=== PATIENT | male | born 1950 | race Caucasian/White ===

== ENCOUNTER 2021-07-31 15:47 | Inpatient (IN) | payer OTHER ==
[~2021-07-31] VITALS: Ht 170.2 cm; Wt 83.7 kg
[2021-07-31] MEDS ORDERED: SODIUM CHLORIDE 0.9% 1,000 ML IV ONE (16:15)
[2021-07-31] MEDS ORDERED: AMIODARONE HCL 150 MG in D5W 5% 100 ML IV ONE (16:15)
[2021-07-31 16:23] LABS: Basophils # (auto) 0.1 10 ^3/uL (0-0.2); Basophils % (auto) 0.4 % (0.0-2.0); Eosinophils # (auto) 0 10 ^3/uL (0-0.8); Hemoglobin 14.9 g/dL (13.5-17.5); Lymphocytes # (auto) 0.4 10 ^3/uL (0.4-5.4); Lymphocytes % (auto) 2.3 % (10.0-50.0); Mean Corpuscular Hemoglobin 30.9 pg (28.0-32.0); Mean Corpuscular Hgb Conc. 31.7 g/dL (32.0-36.0); Mean Corpuscular Volume 97.3 fL (80.0-100.0); Monocytes # (auto) 0.8 10 ^3/uL (0-1.3); Monocytes % (auto) 4.6 % (0.0-12.0); Neutrophils # (auto) 15.3 10 ^3/uL (1.6-8.6); Neutrophils % (auto) 92.7 % (37.0-80.0); Nucleated Red Blood Cells % 0.3 %; Red Blood Cells 4.83 10^6/uL (4.5-5.90); Red Cell Distribution Width 14.4 % (11.8-14.3); White Blood Cell 16.5 10^3/uL (4.4-10.8)
[2021-07-31] MEDS ORDERED: AMIODARONE 450mg/250ml AE 250 ML IV SCH ×2 (16:30→22:30)
[2021-07-31 16:42] LABS: Albumin 2.9 g/dL (3.4-5.0); BUN/Creatinine Ratio 21.7; Calcium 8.4 mg/dL (8.5-10.1); Magnesium 3.1 mg/dL (1.6-2.6)
[2021-07-31] MEDS ORDERED: VANCOMYCIN PER PHARMACY 0 MG IV SCH (16:45)
[2021-07-31] MEDS ORDERED: PIPERACILLIN-TAZOB 3.375GM 100 ML IV ONE (16:45)
[2021-07-31 16:58] LABS: Bilirubin, Total 4.2 mg/dL (0.2-1.0); Total Protein 6.4 g/dL (6.4-8.2)
[2021-07-31] MEDS ORDERED: FUROSEMIDE 40 MG/4 ML VIAL IV ONE ×2 (17:00→20:45)
[2021-07-31 17:14] LABS: Potassium 6.1 mmol/L (3.5-5.1)
[2021-07-31] MEDS ORDERED: DEXTROSE 50% SYRINGE 50 ML IV ONE (17:19)
[2021-07-31] MEDS ORDERED: DOBUTamine 1000MCG/ML 250 ML IV SCH (17:30)
[2021-07-31] MEDS ORDERED: DEXTROSE (50%) 50ML SYRG IV ONE ×2 (17:30→20:45)
[2021-07-31] MEDS ORDERED: DIGOXIN (250MCG/ML) 2 ML AMPULE IV ONE (17:30)
[2021-07-31 17:42] LABS: Lactic Acid w/Reflex 11.4 mmol/L (0.4-2.0)
[2021-07-31 17:43] VITALS: BP 102/79
[2021-07-31 18:34] LABS: Cholesterol 80 mg/dL (< 200)
[2021-07-31 18:37] LABS: HDL Cholesterol 16 mg/dL (40-59); LDL Cholesterol 63 mg/dL (< 100); Triglycerides 96 mg/dL (< 150)
[2021-07-31 18:54] LABS: INR 2.16 (0.9-1.15); Partial Thromboplastin Time 31.6 sec (23.6-33.0)
[2021-07-31 19:16] LABS: Urine Amorphous Crystal FEW /hpf (None Seen); Urine Bacteria NONE SEEN /hpf (None Seen); Urine Blood 2+ /uL (Negative); Urine Hyaline Cast MANY /lpf (0 - 2); Urine Mucus FEW (None Seen); Urine Specific Gravity 1.013 (1.001-1.035); Urine WBC 4 /hpf (0 - 3)
[2021-07-31] MEDS ORDERED: VANCOMYCIN 1GM/250ML 250 ML IV ONE (20:00)
[2021-07-31] MEDS ORDERED: DIGOXIN (250MCG/ML) 2 ML AMPULE IV SCH (20:00)
[2021-07-31 20:10] VITALS: BP 109/81
[2021-07-31] MEDS ORDERED: methylPREDNISolone SOD SUCC 125 MG/2 ML VL IV ONE (20:15)
[2021-07-31] MEDS ORDERED: METOPROLOL TARTRATE 1MG/1ML-5ML VIAL IV PRN (20:15)
[2021-07-31] MEDS ORDERED: DexAMETHasone SOD PHOS 10MG/1ML VIAL INJ IV ONE (20:30)
[2021-07-31] MEDS ORDERED: MORPHINE SULFATE INJECTION 2 MG/ML SYRG IV PRN ×2 (20:30)
[2021-07-31] MEDS ORDERED: NITROGLYCERIN 0.4 MG SL TAB SL PRN (20:30)
[2021-07-31] MEDS ORDERED: InsuLIN REG 1unit/0.01ml Soln (100units/ml) IV ONE (20:45)
[2021-07-31] MEDS ORDERED: CALCIUM CHL 100MG/ML 1,000 MG in D5W 5% 100 ML IV ONE (20:45)
[2021-07-31] MEDS ORDERED: ALBUTEROL SULF 2.5 MG/0.5ML(0.5%) NEB SOLN NEB ONE (20:45)
[2021-07-31] MEDS ORDERED: METOPROLOL SUCCINATE XL 50 MG TAB PO ONE (20:45)
[2021-07-31] MEDS ORDERED: SODIUM BICARBONATE 8.4% INJ 50ML SYRINGE IV ONE (20:45)
[2021-07-31] MEDS ORDERED: SODIUM ZIRCONIUM CYCL 10 GM PAK PO ONE (21:00)
[2021-07-31] MEDS ORDERED: D5W/SOD CHLO 0.9% 1,000 ML IV ONE (21:15)
[2021-07-31] MEDS ORDERED: ALBUMIN 25% 100 ML IV ONE (21:30)
[2021-07-31] MEDS ORDERED: ENOXAPARIN SOD 80 MG/0.8ML SYRINGE SC ONE (21:30)
[2021-07-31 22:00] VITALS: BP 108/78
[2021-07-31] MEDS ORDERED: CARVEDILOL 3.125 MG TAB PO SCH (22:00)
[2021-08-01] MEDS ORDERED: METOPROLOL SUCCINATE XL 50 MG TAB PO ONE (00:15)
[2021-08-01] MEDS ORDERED: DOCUSATE SOD 100 MG CAP PO PRN (00:15)
[2021-08-01] MEDS ORDERED: D5W/SOD CHLO 0.9% 1,000 ML IV SCH (00:15)
[2021-08-01] MEDS ORDERED: ALBUTEROL SULF HFA 90MCG INH 200DOSE IN PRN (00:15)
[2021-08-01] MEDS ORDERED: REMDESIVIR PER PHARMACY 0 ML IV SCH (00:15)
[2021-08-01] MEDS ORDERED: LORazepam 0.5 MG TAB PO PRN (00:15)
[2021-08-01] MEDS ORDERED: NITROGLYCERIN 0.4 MG SL TAB SL PRN (00:15)
[2021-08-01] MEDS ORDERED: ATORVASTATIN 20 MG TAB PO ONE (00:15)
[2021-08-01] MEDS ORDERED: MORPHINE SULFATE INJECTION 2 MG/ML SYRG IV PRN ×2 (00:15)
[2021-08-01] MEDS ORDERED: ASPirin 81 mg TAB PO ONE (00:15)
[2021-08-01] MEDS ORDERED: HYDROcodone-ACET 5/325MG TAB PO PRN (00:15)
[2021-08-01] MEDS ORDERED: ALUM & MAG HYDROX-SIMETH LIQ(MAALOX) 30 ML PO PRN (00:15)
[2021-08-01] MEDS ORDERED: ALBUMIN 25% 100 ML IV SCH (01:00)
[2021-08-01 01:10] LABS: Basophils # (auto) 0.2 10 ^3/uL (0-0.2); Basophils % (auto) 0.9 % (0.0-2.0); Eosinophils # (auto) 0 10 ^3/uL (0-0.8); Hematocrit 40.9 % (41.0-53.0); Hemoglobin 13.4 g/dL (13.5-17.5); Lymphocytes # (auto) 0.3 10 ^3/uL (0.4-5.4); Lymphocytes % (auto) 1.2 % (10.0-50.0); Mean Corpuscular Hemoglobin 31.2 pg (28.0-32.0); Mean Corpuscular Hgb Conc. 32.6 g/dL (32.0-36.0); Mean Corpuscular Volume 95.6 fL (80.0-100.0); Monocytes # (auto) 1.4 10 ^3/uL (0-1.3); Monocytes % (auto) 6.6 % (0.0-12.0); Neutrophils # (auto) 19.3 10 ^3/uL (1.6-8.6); Neutrophils % (auto) 91.3 % (37.0-80.0); Nucleated Red Blood Cells % 0.3 %; Red Blood Cells 4.28 10^6/uL (4.5-5.90); Red Cell Distribution Width 14.4 % (11.8-14.3); White Blood Cell 21.2 10^3/uL (4.4-10.8)
[2021-08-01 01:35] LABS: Albumin 3.1 g/dL (3.4-5.0); Magnesium 2.7 mg/dL (1.6-2.6); Potassium 5.2 mmol/L (3.5-5.1)
[2021-08-01] MEDS: ALBUMIN 25% 100 ML IV SCH ×3 (01:36→16:15)
[2021-08-01 01:47] LABS: Thyroid Stimulating Hormone 1.19 uIU/mL (0.358-3.74)
[2021-08-01 01:51] LABS: BUN/Creatinine Ratio 25.7; Bilirubin, Total 3.8 mg/dL (0.2-1.0); CRP High Sensitivity 9.95 mg/dL (< 0.3); Phosphorus 6.2 mg/dL (2.5-4.90); Total Protein 5.8 g/dL (6.4-8.2)
[2021-08-01 02:27] LABS: Alcohol, Urine 4.2 mg/dL (0-10); Cannabinoid Screen, Urine POSITIVE (NEGATIVE)
[2021-08-01 02:28] LABS: Amphetamine Screen, Urine POSITIVE (NEGATIVE); Barbiturate Scree,Urine NEGATIVE (NEGATIVE); Benzodiazephine Screen, Urine NEGATIVE (NEGATIVE); Cocaine Screen, Urine NEGATIVE (NEGATIVE); Opiate Scree,Urine NEGATIVE (NEGATIVE); Phencyclidine Screen, Urine NEGATIVE (NEGATIVE)
[2021-08-01 04:52] LABS: Basophils # (auto) 0 10 ^3/uL (0-0.2); Basophils % (auto) 0.1 % (0.0-2.0); Eosinophils # (auto) 0 10 ^3/uL (0-0.8); Hematocrit 39.2 % (41.0-53.0); Hemoglobin 12.7 g/dL (13.5-17.5); Lymphocytes # (auto) 0.3 10 ^3/uL (0.4-5.4); Lymphocytes % (auto) 1.9 % (10.0-50.0); Mean Corpuscular Hgb Conc. 32.4 g/dL (32.0-36.0); Mean Corpuscular Volume 95.7 fL (80.0-100.0); Monocytes % (auto) 5.6 % (0.0-12.0); Neutrophils # (auto) 16.9 10 ^3/uL (1.6-8.6); Neutrophils % (auto) 92.4 % (37.0-80.0); Nucleated Red Blood Cells % 0.5 %; Red Blood Cells 4.09 10^6/uL (4.5-5.90); White Blood Cell 18.3 10^3/uL (4.4-10.8)
[2021-08-01] MEDS ORDERED: FUROSEMIDE 20 MG/2 ML VIAL IV SCH ×2 (06:00)
[2021-08-01] MEDS: SODIUM CHLOR 0.9% PF (SALINE LOCK) 10ML VIAL/SYR IV SCH ×3 (06:40→21:47)
[2021-08-01] MEDS: SODIUM ZIRCONIUM CYCL 10 GM PAK PO SCH ×3 (06:40→21:48)
[2021-08-01] MEDS ORDERED: OPTISON 3ml Vial for INJ IV ONE ×2 (09:39→10:15)
[2021-08-01] MEDS ORDERED: DexAMETHasone SOD PHOS 10MG/1ML VIAL INJ IV SCH (10:00)
[2021-08-01] MEDS ORDERED: FLORASTOR (S. BOULARDII) 250 MG CAP PO SCH ×2 (10:00)
[2021-08-01] MEDS ORDERED: BUDESONIDE (INHALATION) 180 MCG IH IN SCH (10:00)
[2021-08-01] MEDS: DOXYCYCLINE 100MG/250ML 250 ML IV SCH ×2 (10:00→21:47)
[2021-08-01] MEDS ORDERED: ZINC SULFATE 220mg CAP or TAB PO SCH (10:00)
[2021-08-01] MEDS ORDERED: IVERMECTIN 3 MG TAB PO SCH (10:00)
[2021-08-01] MEDS: ASPirin 81 mg TAB PO SCH (10:26)
[2021-08-01] MEDS ORDERED: DIGOXIN (250MCG/ML) 2 ML AMPULE IV ONE (11:30)
[2021-08-01] MEDS ORDERED: DIGOXIN (250MCG/ML) 2 ML AMPULE ONE (12:37)
[2021-08-01] MEDS ORDERED: SODIUM BICARBONATE 50ML VIAL 50 ML in SOD CHL 0.45% 1,000 ML IV SCH (15:45)
[2021-08-01] MEDS ORDERED: BUMETANIDE 2.5mg/10ml (0.25 mg/ml) INJ IV ONE (15:50)
[2021-08-01] MEDS ORDERED: AMIODARONE HCL 200 MG TAB PO ONE (16:30)
[2021-08-01] MEDS ORDERED: WARFARIN SODIUM 2.5 MG TAB PO ONE (17:00)
[2021-08-01 20:05] LABS: INR 2.48 (0.9-1.15)
[2021-08-01] MEDS: AMIODARONE HCL 200 MG TAB PO SCH (21:47)
[2021-08-01] MEDS ORDERED: METOPROLOL SUCCINATE XL 50 MG TAB PO SCH (22:00)
[2021-08-01] MEDS: CARVEDILOL 3.125 MG TAB PO SCH (22:00)
[2021-08-01] MEDS ORDERED: ATORVASTATIN 20 MG TAB PO SCH (22:00)
[2021-08-01] MEDS ORDERED: ENOXAPARIN SOD 80 MG/0.8ML SYRINGE SC SCH (22:00)
[2021-08-01 23:27] VITALS: BP 107/58
[2021-08-02 05:00] VITALS: BP 109/69
[2021-08-02 06:03] LABS: Basophils # (auto) 0 10 ^3/uL (0-0.2); Basophils % (auto) 0.1 % (0.0-2.0); Eosinophils # (auto) 0 10 ^3/uL (0-0.8); Hematocrit 40.5 % (41.0-53.0); Hemoglobin 13.1 g/dL (13.5-17.5); Lymphocytes # (auto) 0.3 10 ^3/uL (0.4-5.4); Lymphocytes % (auto) 2.3 % (10.0-50.0); Mean Corpuscular Hemoglobin 31.6 pg (28.0-32.0); Mean Corpuscular Hgb Conc. 32.4 g/dL (32.0-36.0); Mean Corpuscular Volume 97.3 fL (80.0-100.0); Monocytes # (auto) 0.6 10 ^3/uL (0-1.3); Monocytes % (auto) 4.2 % (0.0-12.0); Neutrophils # (auto) 13.7 10 ^3/uL (1.6-8.6); Neutrophils % (auto) 93.4 % (37.0-80.0); Nucleated Red Blood Cells % 0.8 %; Red Blood Cells 4.16 10^6/uL (4.5-5.90); Red Cell Distribution Width 14.1 % (11.8-14.3); White Blood Cell 14.7 10^3/uL (4.4-10.8)
[2021-08-02] MEDS: SODIUM CHLOR 0.9% PF (SALINE LOCK) 10ML VIAL/SYR IV SCH ×3 (06:06→23:23)
[2021-08-02] MEDS: SODIUM ZIRCONIUM CYCL 10 GM PAK PO SCH ×3 (06:06→23:00)
[2021-08-02] MEDS: BUMETANIDE 2.5mg/10ml (0.25 mg/ml) INJ IV SCH ×2 (06:06→17:43)
[2021-08-02] MEDS: ONDANSETRON HCL 4 MG/2 ML VIAL IV PRN ×2 (06:07→18:12)
[2021-08-02 06:18] LABS: Chloride 102 mmol/L (98-107); INR 2.5 (0.9-1.15); Potassium 3.7 mmol/L (3.5-5.1); Sodium 133 mmol/L (136-145)
[2021-08-02 06:24] LABS: Albumin 2.5 g/dL (3.4-5.0); Alkaline Phosphatase 127 U/L (45-117); Anion Gap 11 (5-15); BUN/Creatinine Ratio 35.4; Bilirubin, Total 2.9 mg/dL (0.2-1.0); Calcium 6.9 mg/dL (8.5-10.1); Carbon Dioxide 20 mmol/L (21-32); GFR African American 37 mL/min; GFR Non-African American 30 mL/min; Glucose 101 mg/dL (74-106); Total Protein 5.1 g/dL (6.4-8.2)
[2021-08-02 07:04] LABS: Alanine Aminotransferase > 1000 U/L (16-61); Aspartate Aminotransferase > 1000 U/L (15-37)
[2021-08-02 07:05] LABS: Blood Urea Nitrogen 81 mg/dL (7-18)
[2021-08-02 09:09] VITALS: BP 126/80
[2021-08-02] MEDS: ASPirin 81 mg TAB PO SCH (09:31)
[2021-08-02] MEDS: DOXYCYCLINE 100MG/250ML 250 ML IV SCH ×2 (09:31→22:59)
[2021-08-02] MEDS: CARVEDILOL 3.125 MG TAB PO SCH ×2 (09:33→23:00)
[2021-08-02] MEDS: AMIODARONE HCL 200 MG TAB PO SCH ×2 (09:38→22:59)
[2021-08-02] MEDS: SODIUM BICARBONATE 50ML VIAL 75 ML in SOD CHL 0.45% 1,000 ML IV SCH ×2 (11:12→23:00)
[2021-08-02 13:00] VITALS: BP 110/63
[2021-08-02 16:49] VITALS: BP 111/47
[2021-08-02] MEDS ORDERED: WARFARIN SODIUM 2.5 MG TAB PO ONE (18:00)
[2021-08-02] MEDS ORDERED: Ensure HIGH Protein Chocolate 8oz Bottle PO SCH (18:00)
[2021-08-02 22:00] VITALS: BP 101/50
[2021-08-03 05:00] VITALS: BP 107/51
[2021-08-03] MEDS: BUMETANIDE 2.5mg/10ml (0.25 mg/ml) INJ IV SCH ×2 (05:50→17:40)
[2021-08-03] MEDS: ONDANSETRON HCL 4 MG/2 ML VIAL IV PRN ×2 (06:04→15:10)
[2021-08-03 06:22] LABS: Basophils # (auto) 0.1 10 ^3/uL (0-0.2); Basophils % (auto) 0.5 % (0.0-2.0); Eosinophils # (auto) 0 10 ^3/uL (0-0.8); Hematocrit 39.4 % (41.0-53.0); Hemoglobin 13.1 g/dL (13.5-17.5); Lymphocytes # (auto) 0.4 10 ^3/uL (0.4-5.4); Lymphocytes % (auto) 2.9 % (10.0-50.0); Mean Corpuscular Hemoglobin 31.2 pg (28.0-32.0); Mean Corpuscular Hgb Conc. 33.1 g/dL (32.0-36.0); Mean Corpuscular Volume 94.3 fL (80.0-100.0); Monocytes # (auto) 0.8 10 ^3/uL (0-1.3); Monocytes % (auto) 5.4 % (0.0-12.0); Neutrophils # (auto) 14.2 10 ^3/uL (1.6-8.6); Neutrophils % (auto) 91.2 % (37.0-80.0); Nucleated Red Blood Cells % 0.6 %; Red Blood Cells 4.18 10^6/uL (4.5-5.90); White Blood Cell 15.6 10^3/uL (4.4-10.8)
[2021-08-03 06:43] LABS: INR 1.98 (0.9-1.15)
[2021-08-03] MEDS: SODIUM CHLOR 0.9% PF (SALINE LOCK) 10ML VIAL/SYR IV SCH ×2 (06:55→13:58)
[2021-08-03 06:59] LABS: Potassium 3.7 mmol/L (3.5-5.1)
[2021-08-03 07:24] LABS: Albumin 2.3 g/dL (3.4-5.0); BUN/Creatinine Ratio 38.9; Bilirubin, Total 2.1 mg/dL (0.2-1.0); Calcium 7.2 mg/dL (8.5-10.1); Total Protein 4.6 g/dL (6.4-8.2)
[2021-08-03 08:00] VITALS: BP 132/76
[2021-08-03] MEDS: DOXYCYCLINE 100MG/250ML 250 ML IV SCH ×2 (10:19→22:34)
[2021-08-03] MEDS: Ensure HIGH Protein Chocolate 8oz Bottle PO SCH ×3 (10:19→17:32)
[2021-08-03] MEDS: ASPirin 81 mg TAB PO SCH (10:19)
[2021-08-03] MEDS: AMIODARONE HCL 200 MG TAB PO SCH ×2 (10:20→22:26)
[2021-08-03] MEDS: CARVEDILOL 3.125 MG TAB PO SCH ×2 (10:21→22:27)
[2021-08-03 12:00] VITALS: BP 108/60
[2021-08-03 16:00] VITALS: BP 127/73
[2021-08-03] MEDS ORDERED: WARFARIN SODIUM 2 MG TAB PO ONE (17:00)
[2021-08-03] MEDS: SODIUM BICARBONATE 50ML VIAL 75 ML in SOD CHL 0.45% 1,000 ML IV SCH (17:26)
[2021-08-03 21:00] VITALS: BP 125/71
[2021-08-04] VITALS (19 sets, daily range): BP systolic 71–113; BP diastolic 32–74
[2021-08-04] MEDS: SODIUM CHLOR 0.9% PF (SALINE LOCK) 10ML VIAL/SYR IV SCH ×4 (00:07→22:25)
[2021-08-04] MEDS: BUMETANIDE 2.5mg/10ml (0.25 mg/ml) INJ IV SCH ×2 (06:11→12:23)
[2021-08-04 06:37] LABS: Basophils # (auto) 0.1 10 ^3/uL (0-0.2); Basophils % (auto) 0.7 % (0.0-2.0); Eosinophils # (auto) 0 10 ^3/uL (0-0.8); Hematocrit 36.3 % (41.0-53.0); Lymphocytes # (auto) 0.7 10 ^3/uL (0.4-5.4); Lymphocytes % (auto) 3.9 % (10.0-50.0); Mean Corpuscular Volume 93.9 fL (80.0-100.0); Monocytes # (auto) 1.6 10 ^3/uL (0-1.3); Monocytes % (auto) 8.8 % (0.0-12.0); Neutrophils # (auto) 15.6 10 ^3/uL (1.6-8.6); Neutrophils % (auto) 86.6 % (37.0-80.0); Nucleated Red Blood Cells % 0.8 %; Red Blood Cells 3.87 10^6/uL (4.5-5.90); Red Cell Distribution Width 14.4 % (11.8-14.3)
[2021-08-04 06:44] LABS: INR 1.67 (0.9-1.15)
[2021-08-04 06:52] LABS: Potassium 4.1 mmol/L (3.5-5.1)
[2021-08-04 07:26] LABS: Albumin 2.2 g/dL (3.4-5.0); BUN/Creatinine Ratio 48.3; Bilirubin, Total 1.8 mg/dL (0.2-1.0); Calcium 7.4 mg/dL (8.5-10.1); Total Protein 4.3 g/dL (6.4-8.2)
[2021-08-04] MEDS: Ensure HIGH Protein Chocolate 8oz Bottle PO SCH ×3 (08:00→18:00)
[2021-08-04] MEDS: DOXYCYCLINE 100MG/250ML 250 ML IV SCH ×2 (09:26→22:24)
[2021-08-04] MEDS: AMIODARONE HCL 200 MG TAB PO SCH (09:27)
[2021-08-04] MEDS: ASPirin 81 mg TAB PO SCH (09:27)
[2021-08-04] MEDS: CARVEDILOL 3.125 MG TAB PO SCH (09:27)
[2021-08-04] MEDS ORDERED: ALBUMIN 25% 100 ML IV ONE (13:00)
[2021-08-04 13:36] LABS: Hepatitis A Ab IgM Negative; Hepatitis B Core IgM Negative; Hepatitis B Surface Antigen Negative (Negative); Hepatitis C Antibody Negative (Negative)
[2021-08-04] MEDS ORDERED: SODIUM CHLORIDE 0.9% 500 ML IV ONE (16:15)
[2021-08-04 16:36] LABS: Basophils # (auto) 0 10 ^3/uL (0-0.2); Basophils % (auto) 0.1 % (0.0-2.0); Eosinophils # (auto) 0 10 ^3/uL (0-0.8); Eosinophils % (auto) 0.1 % (0.0-7.0); Hematocrit 26.6 % (41.0-53.0); Hemoglobin 8.7 g/dL (13.5-17.5); Lymphocytes # (auto) 0.8 10 ^3/uL (0.4-5.4); Lymphocytes % (auto) 5.3 % (10.0-50.0); Mean Corpuscular Hemoglobin 30.6 pg (28.0-32.0); Mean Corpuscular Hgb Conc. 32.7 g/dL (32.0-36.0); Mean Corpuscular Volume 93.4 fL (80.0-100.0); Monocytes # (auto) 1.7 10 ^3/uL (0-1.3); Monocytes % (auto) 10.6 % (0.0-12.0); Neutrophils # (auto) 13.6 10 ^3/uL (1.6-8.6); Neutrophils % (auto) 83.9 % (37.0-80.0); Red Blood Cells 2.84 10^6/uL (4.5-5.90); Red Cell Distribution Width 13.9 % (11.8-14.3); White Blood Cell 16.2 10^3/uL (4.4-10.8)
[2021-08-04] MEDS ORDERED: WARFARIN SODIUM 5 MG TAB PO ONE (17:00)
[2021-08-04] MEDS ORDERED: ALBUMIN 5% 250 ML IV ONE (22:00)
[2021-08-05] VITALS (81 sets, daily range): BP systolic 56–147; BP diastolic 25–127
[2021-08-05] MEDS ORDERED: dilTIAZem 25 MG/5 ML VIAL IV ONE (02:30)
[2021-08-05] MEDS ORDERED: AMIODARONE HCL 150 MG in D5W 5% 100 ML IV ONE (04:15)
[2021-08-05] MEDS ORDERED: ALBUMIN 5% 250 ML IV ONE (04:15)
[2021-08-05 04:53] LABS: Red Blood Cells 2.11 10^6/uL (4.5-5.90); White Blood Cell 15.8 10^3/uL (4.4-10.8)
[2021-08-05] MEDS: AMIODARONE 450mg/250ml AE 250 ML IV SCH ×3 (04:54→10:32)
[2021-08-05 04:57] LABS: Hematocrit 19.3 % (41.0-53.0); Mean Corpuscular Volume 91.4 fL (80.0-100.0); Red Cell Distribution Width 14.2 % (11.8-14.3)
[2021-08-05] MEDS ORDERED: AMIODARONE HCL (50 MG/ ML) 3 ML VIAL IV ONE (05:11)
[2021-08-05 05:12] LABS: INR 1.49 (0.9-1.15)
[2021-08-05 05:14] LABS: Potassium 4.4 mmol/L (3.5-5.1)
[2021-08-05 05:22] LABS: Basophils % (manual) 0 (0.0-2.0); Blast Cells 0; Eosinophils % (manual) 0 (0-7); Hemoglobin 6.6 g/dL (13.5-17.5); Metamyelocytes % 0; Myelocytes % 0; Promyelocytes % 0; Reactive Lymphocytes 0
[2021-08-05 05:25] LABS: Albumin 2.6 g/dL (3.4-5.0); BUN/Creatinine Ratio 62.1; Bilirubin, Total 2.1 mg/dL (0.2-1.0); CRP High Sensitivity 0.88 mg/dL (< 0.3); Calcium 7.8 mg/dL (8.5-10.1); Total Protein 4.6 g/dL (6.4-8.2)
[2021-08-05] MEDS ORDERED: SODIUM CHLORIDE 0.9% 1,000 ML IV ONE (05:45)
[2021-08-05] MEDS: SODIUM CHLOR 0.9% PF (SALINE LOCK) 10ML VIAL/SYR IV SCH ×3 (06:00→22:00)
[2021-08-05] MEDS: Ensure HIGH Protein Chocolate 8oz Bottle PO SCH ×2 (08:00→10:53)
[2021-08-05 08:52] LABS: Band Neutrophils % (manual) 3; Lymphocytes % (manual) 8 (10.0-50.0); Monocytes % (manual) 8 (0-12)
[2021-08-05] MEDS ORDERED: NOREPINEPHRINE 8 MG/250ML KIT 250 ML IV ONE (08:57)
[2021-08-05] MEDS: NOREPINEPHRINE 8 MG/250ML KIT 250 ML IV SCH (09:07)
[2021-08-05] MEDS ORDERED: GOLYTELY 4L KIT PO ONE (09:45)
[2021-08-05] MEDS: DOXYCYCLINE 100MG/250ML 250 ML IV SCH ×2 (10:32→22:00)
[2021-08-05 11:49] LABS: Hemoglobin 7.8 g/dL (13.5-17.5)
[2021-08-05 11:50] LABS: Hematocrit 22.7 % (41.0-53.0)
[2021-08-05] MEDS ORDERED: PHENYLEPHRINE INJ 40 MG in SODIUM CHL 0.9% 246 ML IV SCH (12:00)
[2021-08-05] MEDS ORDERED: DIGOXIN (250MCG/ML) 2 ML AMPULE IV ONE (12:00)
[2021-08-05] MEDS ORDERED: SODIUM CHLORIDE 0.9% 1,000 ML IV SCH (13:15)
[2021-08-05] MEDS: ONDANSETRON HCL 4 MG/2 ML VIAL IV PRN (13:20)
[2021-08-05 19:17] LABS: Hematocrit 20.3 % (41.0-53.0); Hemoglobin 6.7 g/dL (13.5-17.5)
[2021-08-05] MEDS ORDERED: ETOMIDATE (2MG/ML) 20ML VIAL IV ONE (22:33)
[2021-08-05] MEDS ORDERED: SUCCINYLCHOLINE CHLORIDE 20 MG/ML 10ML VIAL IV ONE (22:33)
[2021-08-05] MEDS ORDERED: PROPOFOL 100 ML IV ONE (22:44)
[2021-08-06] VITALS (91 sets, daily range): BP systolic 70–154; BP diastolic 24–86
[2021-08-06] MEDS: PROPOFOL 100 ML IV SCH ×2 (00:13→18:06)
[2021-08-06] MEDS: MIDAZOLAM DRIP 50 mg/50mL 50 ML IV SCH ×2 (00:13→11:16)
[2021-08-06 00:51] LABS: Hematocrit 21.6 % (41.0-53.0); Hemoglobin 7.1 g/dL (13.5-17.5)
[2021-08-06] MEDS: AMIODARONE 450mg/250ml AE 250 ML IV SCH ×2 (01:30→16:30)
[2021-08-06] MEDS: PHENYLEPHRINE IV 250 ML IV SCH ×3 (02:30→19:10)
[2021-08-06 04:36] LABS: Hematocrit 19.3 % (41.0-53.0); Mean Corpuscular Hemoglobin 31.6 pg (28.0-32.0); Mean Corpuscular Hgb Conc. 33.8 g/dL (32.0-36.0); Mean Corpuscular Volume 93.4 fL (80.0-100.0); Red Blood Cells 2.06 10^6/uL (4.5-5.90); Red Cell Distribution Width 15.1 % (11.8-14.3)
[2021-08-06 04:44] LABS: INR 3.13 (0.9-1.15)
[2021-08-06 04:45] LABS: White Blood Cell 34.3 10^3/uL (4.4-10.8)
[2021-08-06 04:47] LABS: Basophils % (manual) 0 (0.0-2.0); Blast Cells 0; Hemoglobin 6.5 g/dL (13.5-17.5); Promyelocytes % 0
[2021-08-06 05:22] LABS: Potassium 5.3 mmol/L (3.5-5.1)
[2021-08-06 05:23] LABS: Albumin 1.9 g/dL (3.4-5.0); BUN/Creatinine Ratio 42.1; Bilirubin, Total 2.2 mg/dL (0.2-1.0); Total Protein 3.5 g/dL (6.4-8.2)
[2021-08-06] MEDS: SODIUM CHLOR 0.9% PF (SALINE LOCK) 10ML VIAL/SYR IV SCH ×3 (07:00→22:00)
[2021-08-06] MEDS: SODIUM CHLORIDE 0.9% 1,000 ML IV SCH ×2 (07:45→17:45)
[2021-08-06] MEDS: Ensure HIGH Protein Chocolate 8oz Bottle PO SCH ×2 (08:00→12:00)
[2021-08-06 08:01] LABS: Band Neutrophils % (manual) 5; Eosinophils % (manual) 0 (0-7); Lymphocytes % (manual) 11 (10.0-50.0); Metamyelocytes % 1; Monocytes % (manual) 2 (0-12); Myelocytes % 1; Reactive Lymphocytes 0
[2021-08-06] MEDS ORDERED: VANCOMYCIN PER PHARMACY 0 MG IV SCH (09:45)
[2021-08-06] MEDS ORDERED: LINEZOLID 600MG/300ML 300 ML IV SCH (10:00)
[2021-08-06] MEDS ORDERED: VANCOMYCIN 1GM/250ML 250 ML IV ONE (11:00)
[2021-08-06] MEDS: NOREPINEPHRINE 8 MG/250ML KIT 250 ML IV SCH (11:24)
[2021-08-06] MEDS: PIPERACILLIN-TAZOB 3.375GM 100 ML IV SCH ×2 (12:19→18:06)
[2021-08-06 16:10] LABS: Hematocrit 23.8 % (41.0-53.0); Hemoglobin 8.2 g/dL (13.5-17.5)
[2021-08-06 16:25] LABS: BUN/Creatinine Ratio 35.8; Calcium 6.4 mg/dL (8.5-10.1)
[2021-08-06 16:51] LABS: Potassium 5.7 mmol/L (3.5-5.1)
[2021-08-06] MEDS ORDERED: InsuLIN REG 1unit/0.01ml Soln (100units/ml) IV ONE (18:15)
[2021-08-06] MEDS ORDERED: DEXTROSE (50%) 50ML SYRG IV ONE (18:15)
[2021-08-06] MEDS ORDERED: SODIUM BICARBONATE 8.4 % INJ 50ML VIAL IV ONE (18:15)
[2021-08-06] MEDS ORDERED: CALCIUM GLUC 1,000mg/50ml-NS 50 ML IV ONE (18:15)
[2021-08-06] MEDS ORDERED: FUROSEMIDE 100 MG/10ML VIAL IV ONE (18:30)
[2021-08-06] MEDS: PHENYLEPHRINE INJ 80 MG in SODIUM CHL 0.9% 242 ML IV SCH (20:00)
[2021-08-06] MEDS ORDERED: PHENYLEPHRINE IV 250 ML IV ONE (21:01)
[2021-08-06] MEDS ORDERED: PHENYLEPHRINE HCL 10 MG/ML VL ONE (21:02)
[2021-08-06 22:42] LABS: Hemoglobin 5.1 g/dL (13.5-17.5)
[2021-08-06 23:19] LABS: Red Blood Cells 1.66 10^6/uL (4.5-5.90); Red Cell Distribution Width 14.6 % (11.8-14.3)
[2021-08-06 23:21] LABS: Hematocrit 15.5 % (41.0-53.0); Mean Corpuscular Hemoglobin 31.1 pg (28.0-32.0); Mean Corpuscular Hgb Conc. 33.3 g/dL (32.0-36.0); Mean Corpuscular Volume 93.5 fL (80.0-100.0)
[2021-08-06 23:27] LABS: Hemoglobin 5.2 g/dL (13.5-17.5); White Blood Cell 30.2 10^3/uL (4.4-10.8)
[2021-08-06 23:28] LABS: Basophils % (manual) 0 (0.0-2.0); Blast Cells 0; Eosinophils % (manual) 0 (0-7); Metamyelocytes % 0; Promyelocytes % 0; Reactive Lymphocytes 0
[2021-08-06] MEDS ORDERED: OCTREOTIDE ACETATE 500 MCG in SODIUM CHL 0.9% 99 ML IV SCH (23:45)
[2021-08-07] VITALS (94 sets, daily range): BP systolic 80–150; BP diastolic 27–74
[2021-08-07] MEDS: SODIUM CHLORIDE 0.9% 1,000 ML IV SCH ×3 (00:29→22:27)
[2021-08-07] MEDS: SODIUM CHLOR 0.9% PF (SALINE LOCK) 10ML VIAL/SYR IV SCH ×3 (01:03→20:43)
[2021-08-07] MEDS ORDERED: PANTOPRAZOLE 40mg/50ML NS AE 50 ML IV ONE (01:07)
[2021-08-07 01:21] LABS: Band Neutrophils % (manual) 8; Lymphocytes % (manual) 5 (10.0-50.0); Monocytes % (manual) 10 (0-12); Myelocytes % 5
[2021-08-07 02:53] LABS: INR 1.83 (0.9-1.15); Partial Thromboplastin Time 44.6 sec (23.6-33.0)
[2021-08-07] MEDS: PANTOPRAZOLE 40mg/50ML NS AE 50 ML IV SCH ×2 (03:15→06:21)
[2021-08-07 06:07] LABS: Hemoglobin 9.1 g/dL (13.5-17.5)
[2021-08-07 06:13] LABS: Hematocrit 26.3 % (41.0-53.0); Mean Corpuscular Hemoglobin 32.7 pg (28.0-32.0); Mean Corpuscular Hgb Conc. 34.7 g/dL (32.0-36.0); Mean Corpuscular Volume 94.2 fL (80.0-100.0); Red Blood Cells 2.79 10^6/uL (4.5-5.90); Red Cell Distribution Width 14.2 % (11.8-14.3); White Blood Cell 24.9 10^3/uL (4.4-10.8)
[2021-08-07 06:21] LABS: Basophils % (manual) 0 (0.0-2.0); Blast Cells 0; Eosinophils % (manual) 0 (0-7); Promyelocytes % 0; Reactive Lymphocytes 0
[2021-08-07] MEDS: PIPERACILLIN-TAZOB 3.375GM 100 ML IV SCH ×2 (06:21)
[2021-08-07] MEDS: AMIODARONE 450mg/250ml AE 250 ML IV SCH ×2 (06:22→20:41)
[2021-08-07 06:33] LABS: Potassium 5.2 mmol/L (3.5-5.1)
[2021-08-07 06:45] LABS: BUN/Creatinine Ratio 35.7
[2021-08-07 07:04] LABS: Band Neutrophils % (manual) 16; Lymphocytes % (manual) 5 (10.0-50.0); Metamyelocytes % 2; Monocytes % (manual) 7 (0-12); Myelocytes % 1
[2021-08-07] MEDS ORDERED: CALCIUM GLUC 1,000mg/50ml-NS 50 ML IV ONE (08:45)
[2021-08-07] MEDS ORDERED: SODIUM BICARBONATE 8.4 % INJ 50ML VIAL IV ONE (08:45)
[2021-08-07] MEDS ORDERED: FUROSEMIDE 100 MG/10ML VIAL IV ONE (08:45)
[2021-08-07] MEDS ORDERED: DEXTROSE (50%) 50ML SYRG IV ONE (08:45)
[2021-08-07] MEDS ORDERED: InsuLIN REG 1unit/0.01ml Soln (100units/ml) IV ONE (08:45)
[2021-08-07] MEDS: NOREPINEPHRINE 8 MG/250ML KIT 250 ML IV SCH (09:00)
[2021-08-07] MEDS ORDERED: VANCOMYCIN 500 MG in D5W 5% 100 ML IV ONE (09:30)
[2021-08-07] MEDS: MEROPENEM 1GM IVPB 100 ML IV SCH ×2 (11:08→22:26)
[2021-08-07] MEDS: MIDAZOLAM DRIP 50 mg/50mL 50 ML IV SCH ×2 (11:51→15:59)
[2021-08-07] MEDS: PROPOFOL 100 ML IV SCH ×2 (11:51→17:31)
[2021-08-07 15:55] LABS: Hematocrit 24.2 % (41.0-53.0); Hemoglobin 8.3 g/dL (13.5-17.5)
[2021-08-07] MEDS: PHENYLEPHRINE INJ 80 MG in SODIUM CHL 0.9% 242 ML IV SCH (17:31)
[2021-08-07] MEDS ORDERED: MEROPENEM 1GM IVPB 100 ML IV ONE (19:51)
[2021-08-07 22:24] LABS: Hematocrit 25.2 % (41.0-53.0); Hemoglobin 8.6 g/dL (13.5-17.5)
[2021-08-07] MEDS: PANTOPRAZOLE 40 MG/10 ML VIAL INJ IV SCH (22:26)
[2021-08-08] VITALS (99 sets, daily range): BP systolic 81–152; BP diastolic 41–85
[2021-08-08 04:49] LABS: Red Blood Cells 2.53 10^6/uL (4.5-5.90)
[2021-08-08 04:52] LABS: Hematocrit 24.3 % (41.0-53.0); Hemoglobin 8.3 g/dL (13.5-17.5); Mean Corpuscular Hemoglobin 32.8 pg (28.0-32.0); Mean Corpuscular Hgb Conc. 34.2 g/dL (32.0-36.0); Mean Corpuscular Volume 95.9 fL (80.0-100.0); Red Cell Distribution Width 14.4 % (11.8-14.3); White Blood Cell 24.2 10^3/uL (4.4-10.8)
[2021-08-08 04:56] LABS: INR 1.27 (0.9-1.15)
[2021-08-08 04:58] LABS: Basophils % (manual) 0 (0.0-2.0); Blast Cells 0; Eosinophils % (manual) 0 (0-7); Metamyelocytes % 0; Myelocytes % 0; Promyelocytes % 0; Reactive Lymphocytes 0
[2021-08-08 05:03] LABS: Calcium 6.9 mg/dL (8.5-10.1); Potassium 4.5 mmol/L (3.5-5.1)
[2021-08-08 05:06] LABS: BUN/Creatinine Ratio 29.7
[2021-08-08 07:36] LABS: Band Neutrophils % (manual) 3; Lymphocytes % (manual) 9 (10.0-50.0); Monocytes % (manual) 6 (0-12)
[2021-08-08] MEDS: NOREPINEPHRINE 8 MG/250ML KIT 250 ML IV SCH (09:00)
[2021-08-08] MEDS: SODIUM CHLORIDE 0.9% 1,000 ML IV SCH ×2 (09:03→12:15)
[2021-08-08] MEDS: MIDAZOLAM DRIP 50 mg/50mL 50 ML IV SCH (09:03)
[2021-08-08] MEDS: PANTOPRAZOLE 40 MG/10 ML VIAL INJ IV SCH ×2 (10:00→21:57)
[2021-08-08] MEDS: MEROPENEM 1GM IVPB 100 ML IV SCH ×2 (10:46→21:57)
[2021-08-08] MEDS ORDERED: VANCOMYCIN 750mg/250ml 250 ML IV ONE (11:00)
[2021-08-08] MEDS ORDERED: FUROSEMIDE 40 MG/4 ML VIAL IV ONE (12:30)
[2021-08-08] MEDS: AMIODARONE 450mg/250ml AE 250 ML IV SCH ×2 (13:30→21:58)
[2021-08-08] MEDS: SODIUM CHLOR 0.9% PF (SALINE LOCK) 10ML VIAL/SYR IV SCH ×3 (13:45→23:31)
[2021-08-08] MEDS ORDERED: ATROPINE SULFATE 1 MG/1 ML VIAL ONE ×2 (16:42→16:52)
[2021-08-08] MEDS ORDERED: ATROPINE SULF 1 MG/10ml SYR IV ONE (17:00)
[2021-08-08] MEDS: PHENYLEPHRINE INJ 80 MG in SODIUM CHL 0.9% 242 ML IV SCH (17:35)
[2021-08-08 18:55] LABS: Hemoglobin 8.4 g/dL (13.5-17.5)
[2021-08-08 18:56] LABS: Hematocrit 25.4 % (41.0-53.0)
[2021-08-08] MEDS: PROPOFOL 100 ML IV SCH (21:58)
[2021-08-09] VITALS (92 sets, daily range): BP systolic 101–135; BP diastolic 48–67
[2021-08-09 03:49] LABS: Hematocrit 22.9 % (41.0-53.0); Red Cell Distribution Width 14.6 % (11.8-14.3)
[2021-08-09 03:52] LABS: Hemoglobin 7.8 g/dL (13.5-17.5); Mean Corpuscular Hemoglobin 33.1 pg (28.0-32.0); Mean Corpuscular Volume 97.4 fL (80.0-100.0); Red Blood Cells 2.35 10^6/uL (4.5-5.90); White Blood Cell 17.6 10^3/uL (4.4-10.8)
[2021-08-09 04:05] LABS: Band Neutrophils % (manual) 0; Basophils % (manual) 0 (0.0-2.0); Blast Cells 0; Metamyelocytes % 0; Myelocytes % 0; Promyelocytes % 0; Reactive Lymphocytes 0
[2021-08-09 04:06] LABS: Albumin 1.7 g/dL (3.4-5.0); Calcium 7.2 mg/dL (8.5-10.1)
[2021-08-09 04:09] LABS: BUN/Creatinine Ratio 27.4
[2021-08-09 04:13] LABS: Bilirubin, Total 1.7 mg/dL (0.2-1.0); Total Protein 3.8 g/dL (6.4-8.2)
[2021-08-09 04:22] LABS: Eosinophils % (manual) 1 (0-7); Lymphocytes % (manual) 8 (10.0-50.0); Monocytes % (manual) 5 (0-12)
[2021-08-09] MEDS: SODIUM CHLORIDE 0.9% 1,000 ML IV SCH ×2 (04:55→18:40)
[2021-08-09] MEDS: NOREPINEPHRINE 8 MG/250ML KIT 250 ML IV SCH (09:00)
[2021-08-09] MEDS: PANTOPRAZOLE 40 MG/10 ML VIAL INJ IV SCH ×2 (10:35→23:11)
[2021-08-09] MEDS: MEROPENEM 1GM IVPB 100 ML IV SCH ×2 (11:20→23:11)
[2021-08-09] MEDS ORDERED: VANCOMYCIN 500 MG in D5W 5% 100 ML IV ONE (13:30)
[2021-08-09] MEDS: SODIUM CHLOR 0.9% PF (SALINE LOCK) 10ML VIAL/SYR IV SCH ×2 (14:00→23:11)
[2021-08-09] MEDS: PHENYLEPHRINE INJ 80 MG in SODIUM CHL 0.9% 242 ML IV SCH (20:00)
[2021-08-09] MEDS: MIDAZOLAM DRIP 50 mg/50mL 50 ML IV SCH (23:45)
[2021-08-09] MEDS: PROPOFOL 100 ML IV SCH (23:45)
[2021-08-10] VITALS (92 sets, daily range): BP systolic 105–177; BP diastolic 42–91
[2021-08-10] MEDS: SODIUM CHLOR 0.9% PF (SALINE LOCK) 10ML VIAL/SYR IV SCH ×3 (04:27→21:51)
[2021-08-10 04:37] LABS: Anion Gap 7 (5-15); BUN/Creatinine Ratio 29.2; Blood Urea Nitrogen 69 mg/dL (7-18); Carbon Dioxide 32 mmol/L (21-32); Chloride 111 mmol/L (98-107); GFR African American 35 mL/min; GFR Non-African American 29 mL/min; Glucose 100 mg/dL (74-106); Potassium 3.5 mmol/L (3.5-5.1); Sodium 150 mmol/L (136-145)
[2021-08-10 05:39] LABS: Basophils # (auto) 0 10 ^3/uL (0-0.2); Basophils % (auto) 0.2 % (0.0-2.0); Eosinophils # (auto) 0.1 10 ^3/uL (0-0.8); Hematocrit 22.3 % (41.0-53.0); Hemoglobin 7.4 g/dL (13.5-17.5); Lymphocytes # (auto) 0.7 10 ^3/uL (0.4-5.4); Lymphocytes % (auto) 5.5 % (10.0-50.0); Mean Corpuscular Hemoglobin 32.6 pg (28.0-32.0); Mean Corpuscular Hgb Conc. 33.1 g/dL (32.0-36.0); Mean Corpuscular Volume 98.5 fL (80.0-100.0); Monocytes # (auto) 1.3 10 ^3/uL (0-1.3); Neutrophils # (auto) 10.1 10 ^3/uL (1.6-8.6); Neutrophils % (auto) 82.3 % (37.0-80.0); Nucleated Red Blood Cells % 0.2 %; Red Blood Cells 2.26 10^6/uL (4.5-5.90); Red Cell Distribution Width 14.3 % (11.8-14.3); White Blood Cell 12.2 10^3/uL (4.4-10.8)
[2021-08-10] MEDS: NOREPINEPHRINE 8 MG/250ML KIT 250 ML IV SCH (09:00)
[2021-08-10] MEDS: PANTOPRAZOLE 40 MG/10 ML VIAL INJ IV SCH ×2 (09:44→21:50)
[2021-08-10] MEDS: MEROPENEM 1GM IVPB 100 ML IV SCH ×2 (09:44→21:51)
[2021-08-10] MEDS: SOD CHL 0.45% 1,000 ML IV SCH (10:18)
[2021-08-10] MEDS ORDERED: VANCOMYCIN 1GM/250ML 250 ML IV ONE (14:00)
[2021-08-10] MEDS: PHENYLEPHRINE INJ 80 MG in SODIUM CHL 0.9% 242 ML IV SCH (20:00)
[2021-08-10] MEDS: PROPOFOL 100 ML IV SCH (23:18)
[2021-08-10] MEDS: MIDAZOLAM DRIP 50 mg/50mL 50 ML IV SCH (23:18)
[2021-08-11] VITALS (31 sets, daily range): BP systolic 105–161; BP diastolic 52–96
[2021-08-11] MEDS: ACETAMINOPHEN 325 MG TAB PO PRN ×2 (00:13→01:42)
[2021-08-11] MEDS ORDERED: dilTIAZem 25 MG/5 ML VIAL IV ONE ×3 (01:09→03:15)
[2021-08-11 04:11] LABS: Basophils # (auto) 0 10 ^3/uL (0-0.2); Basophils % (auto) 0.3 % (0.0-2.0); Eosinophils # (auto) 0.1 10 ^3/uL (0-0.8); Eosinophils % (auto) 0.6 % (0.0-7.0); Lymphocytes # (auto) 0.9 10 ^3/uL (0.4-5.4); Lymphocytes % (auto) 5.9 % (10.0-50.0); Mean Corpuscular Hemoglobin 32.1 pg (28.0-32.0); Mean Corpuscular Hgb Conc. 32.2 g/dL (32.0-36.0); Mean Corpuscular Volume 99.8 fL (80.0-100.0); Monocytes # (auto) 1.6 10 ^3/uL (0-1.3); Monocytes % (auto) 10.8 % (0.0-12.0); Neutrophils # (auto) 12.1 10 ^3/uL (1.6-8.6); Neutrophils % (auto) 82.4 % (37.0-80.0); Nucleated Red Blood Cells % 0.1 %; Red Blood Cells 2.81 10^6/uL (4.5-5.90); Red Cell Distribution Width 15.1 % (11.8-14.3); White Blood Cell 14.7 10^3/uL (4.4-10.8)
[2021-08-11 04:28] LABS: INR 1.05 (0.9-1.15); Partial Thromboplastin Time 29.2 sec (23.6-33.0)
[2021-08-11 04:35] LABS: Calcium 8.1 mg/dL (8.5-10.1); Potassium 3.8 mmol/L (3.5-5.1)
[2021-08-11 04:43] LABS: BUN/Creatinine Ratio 31.2
[2021-08-11] MEDS: SOD CHL 0.45% 1,000 ML IV SCH (05:45)
[2021-08-11] MEDS: SODIUM CHLOR 0.9% PF (SALINE LOCK) 10ML VIAL/SYR IV SCH ×3 (06:00→21:40)
[2021-08-11] MEDS: NOREPINEPHRINE 8 MG/250ML KIT 250 ML IV SCH (08:47)
[2021-08-11] MEDS: PANTOPRAZOLE 40 MG/10 ML VIAL INJ IV SCH ×2 (08:51→21:39)
[2021-08-11] MEDS: MEROPENEM 1GM IVPB 100 ML IV SCH ×2 (11:12→23:27)
[2021-08-11] MEDS ORDERED: fentaNYL CITRATE 100 MCG/2 ML VL ONE (13:13)
[2021-08-11] MEDS ORDERED: VANCOMYCIN 1GM/250ML 250 ML IV ONE (13:13)
[2021-08-11] MEDS ORDERED: MIDAZOLAM HCL 2MG/2ML 2ml VIAL (1mg/ml) ONE (13:13)
[2021-08-11] MEDS ORDERED: VANCOMYCIN HCL 1000 MG VL ONE (13:13)
[2021-08-11] MEDS ORDERED: LIDOCAINE 2%HCL (LOCAL ANESTH.) INJ 20ML MDV ONE (13:14)
[2021-08-11] MEDS ORDERED: ADENOSINE 6 MG/2 ML INJ IV ONE (13:22)
[2021-08-11] MEDS ORDERED: AMIODARONE HCL (50 MG/ ML) 3 ML VIAL IV ONE (13:44)
[2021-08-11] MEDS ORDERED: CARVEDILOL 12.5 MG TAB PO ONE (15:15)
[2021-08-11] MEDS ORDERED: DIGOXIN (250MCG/ML) 2 ML AMPULE IV ONE (15:15)
[2021-08-11] MEDS ORDERED: AMIODARONE HCL 200 MG TAB PO ONE (15:15)
[2021-08-11] MEDS: MIDAZOLAM DRIP 50 mg/50mL 50 ML IV SCH (16:00)
[2021-08-11] MEDS: fentaNYL Drip 2500mCg/250mlNS 250 ML IV SCH (17:45)
[2021-08-11] MEDS: PHENYLEPHRINE INJ 80 MG in SODIUM CHL 0.9% 242 ML IV SCH (20:00)
[2021-08-11] MEDS: CARVEDILOL 12.5 MG TAB PO SCH (21:41)
[2021-08-11] MEDS: AMIODARONE HCL 200 MG TAB PO SCH (21:41)
[2021-08-11] MEDS: PROPOFOL 100 ML IV SCH (21:42)
[2021-08-12] VITALS (80 sets, daily range): BP systolic 75–179; BP diastolic 45–87
[2021-08-12] MEDS: SOD CHL 0.45% 1,000 ML IV SCH (01:27)
[2021-08-12 04:39] LABS: Basophils # (auto) 0 10 ^3/uL (0-0.2); Basophils % (auto) 0.2 % (0.0-2.0); Eosinophils # (auto) 0.2 10 ^3/uL (0-0.8); Eosinophils % (auto) 1.2 % (0.0-7.0); Hematocrit 25.1 % (41.0-53.0); Hemoglobin 8.2 g/dL (13.5-17.5); Lymphocytes # (auto) 0.8 10 ^3/uL (0.4-5.4); Lymphocytes % (auto) 5.6 % (10.0-50.0); Mean Corpuscular Hemoglobin 33.4 pg (28.0-32.0); Mean Corpuscular Hgb Conc. 32.7 g/dL (32.0-36.0); Mean Corpuscular Volume 102.2 fL (80.0-100.0); Monocytes # (auto) 1.3 10 ^3/uL (0-1.3); Monocytes % (auto) 9.3 % (0.0-12.0); Neutrophils # (auto) 11.6 10 ^3/uL (1.6-8.6); Neutrophils % (auto) 83.7 % (37.0-80.0); Nucleated Red Blood Cells % 0.1 %; Red Blood Cells 2.45 10^6/uL (4.5-5.90); Red Cell Distribution Width 16.2 % (11.8-14.3); White Blood Cell 13.8 10^3/uL (4.4-10.8)
[2021-08-12] MEDS: SODIUM CHLOR 0.9% PF (SALINE LOCK) 10ML VIAL/SYR IV SCH ×3 (04:53→21:16)
[2021-08-12 04:59] LABS: BUN/Creatinine Ratio 31.7; Calcium 7.8 mg/dL (8.5-10.1); Potassium 4.1 mmol/L (3.5-5.1)
[2021-08-12] MEDS: NOREPINEPHRINE 8 MG/250ML KIT 250 ML IV SCH (06:15)
[2021-08-12] MEDS: DIGOXIN (250MCG/ML) 2 ML AMPULE IV SCH (10:00)
[2021-08-12] MEDS: CARVEDILOL 12.5 MG TAB PO SCH ×2 (10:19→21:17)
[2021-08-12] MEDS: PANTOPRAZOLE 40 MG/10 ML VIAL INJ IV SCH ×2 (10:24→21:16)
[2021-08-12] MEDS ORDERED: FUROSEMIDE 20 MG/2 ML VIAL IV ONE (11:00)
[2021-08-12] MEDS: AMIODARONE HCL 200 MG TAB PO SCH ×2 (13:24→21:17)
[2021-08-12] MEDS: FREE WATER GT SCH ×2 (13:24→18:14)
[2021-08-12] MEDS: MEROPENEM 1GM IVPB 100 ML IV SCH ×2 (13:24→22:30)
[2021-08-12] MEDS ORDERED: VANCOMYCIN 500 MG in D5W 5% 100 ML IV ONE (16:00)
[2021-08-12] MEDS: fentaNYL Drip 2500mCg/250mlNS 250 ML IV SCH ×2 (17:39→22:37)
[2021-08-12] MEDS: PHENYLEPHRINE INJ 80 MG in SODIUM CHL 0.9% 242 ML IV SCH (18:14)
[2021-08-12] MEDS: MIDAZOLAM DRIP 50 mg/50mL 50 ML IV SCH (23:45)
[2021-08-12] MEDS: PROPOFOL 100 ML IV SCH (23:45)
[2021-08-13] VITALS (81 sets, daily range): BP systolic 98–181; BP diastolic 45–140
[2021-08-13] MEDS: FREE WATER GT SCH ×5 (01:18→21:16)
[2021-08-13 04:51] LABS: Eosinophils # (auto) 0.2 10 ^3/uL (0-0.8); Hemoglobin 7.2 g/dL (13.5-17.5)
[2021-08-13 04:52] LABS: Basophils # (auto) 0.1 10 ^3/uL (0-0.2); Basophils % (auto) 0.5 % (0.0-2.0); Eosinophils % (auto) 1.7 % (0.0-7.0); Hematocrit 21.9 % (41.0-53.0); Lymphocytes # (auto) 0.7 10 ^3/uL (0.4-5.4); Lymphocytes % (auto) 6.4 % (10.0-50.0); Mean Corpuscular Hemoglobin 33.3 pg (28.0-32.0); Mean Corpuscular Hgb Conc. 33.1 g/dL (32.0-36.0); Mean Corpuscular Volume 100.6 fL (80.0-100.0); Monocytes % (auto) 8.4 % (0.0-12.0); Neutrophils # (auto) 9.5 10 ^3/uL (1.6-8.6); Red Blood Cells 2.17 10^6/uL (4.5-5.90); Red Cell Distribution Width 15.9 % (11.8-14.3); White Blood Cell 11.5 10^3/uL (4.4-10.8)
[2021-08-13] MEDS: SODIUM CHLOR 0.9% PF (SALINE LOCK) 10ML VIAL/SYR IV SCH ×3 (05:25→21:16)
[2021-08-13 06:07] LABS: Calcium 7.8 mg/dL (8.5-10.1)
[2021-08-13] MEDS: NOREPINEPHRINE 8 MG/250ML KIT 250 ML IV SCH (09:00)
[2021-08-13] MEDS: DIGOXIN (250MCG/ML) 2 ML AMPULE IV SCH (09:05)
[2021-08-13] MEDS: PANTOPRAZOLE 40 MG/10 ML VIAL INJ IV SCH ×2 (09:05→21:16)
[2021-08-13] MEDS: CARVEDILOL 12.5 MG TAB PO SCH (09:06)
[2021-08-13] MEDS: AMIODARONE HCL 200 MG TAB PO SCH ×2 (09:06→21:19)
[2021-08-13] MEDS ORDERED: FUROSEMIDE 40 MG/4 ML VIAL IV ONE (09:45)
[2021-08-13] MEDS: LORazepam 2MG/ML-1ML VIAL IV PRN (10:24)
[2021-08-13] MEDS: MEROPENEM 1GM IVPB 100 ML IV SCH ×2 (11:38→22:58)
[2021-08-13] MEDS ORDERED: hydrALAZINE HCL 20 MG/ML VL IV PRN (15:15)
[2021-08-13] MEDS: PHENYLEPHRINE INJ 80 MG in SODIUM CHL 0.9% 242 ML IV SCH (20:00)
[2021-08-13] MEDS ORDERED: CARVEDILOL 12.5 MG TAB PO SCH (22:00)
[2021-08-13] MEDS: MIDAZOLAM DRIP 50 mg/50mL 50 ML IV SCH (23:45)
[2021-08-13] MEDS: PROPOFOL 100 ML IV SCH (23:45)
[2021-08-14] VITALS (22 sets, daily range): BP systolic 88–139; BP diastolic 37–78
[2021-08-14] MEDS: FREE WATER GT SCH (03:42)
[2021-08-14] MEDS: LORazepam 2MG/ML-1ML VIAL IV PRN (04:11)
[2021-08-14] MEDS: SODIUM CHLOR 0.9% PF (SALINE LOCK) 10ML VIAL/SYR IV SCH ×3 (06:03→21:47)
[2021-08-14 06:17] LABS: Basophils # (auto) 0 10 ^3/uL (0-0.2); Eosinophils # (auto) 0 10 ^3/uL (0-0.8); Hematocrit 18.7 % (41.0-53.0); Mean Corpuscular Hemoglobin 33.3 pg (28.0-32.0); Monocytes # (auto) 0.7 10 ^3/uL (0-1.3); Neutrophils % (auto) 85.6 % (37.0-80.0)
[2021-08-14 06:26] LABS: Basophils % (auto) 0.4 % (0.0-2.0); Eosinophils % (auto) 0.2 % (0.0-7.0); Lymphocytes # (auto) 0.7 10 ^3/uL (0.4-5.4); Lymphocytes % (auto) 7.2 % (10.0-50.0); Mean Corpuscular Hgb Conc. 33.3 g/dL (32.0-36.0); Monocytes % (auto) 6.6 % (0.0-12.0); Neutrophils # (auto) 8.8 10 ^3/uL (1.6-8.6); Nucleated Red Blood Cells % 0.1 %; Red Blood Cells 1.87 10^6/uL (4.5-5.90); Red Cell Distribution Width 15.8 % (11.8-14.3); White Blood Cell 10.3 10^3/uL (4.4-10.8)
[2021-08-14 06:32] LABS: Hemoglobin 6.2 g/dL (13.5-17.5)
[2021-08-14 06:48] LABS: BUN/Creatinine Ratio 37.9; Calcium 7.6 mg/dL (8.5-10.1); Potassium 3.4 mmol/L (3.5-5.1)
[2021-08-14] MEDS ORDERED: VANCOMYCIN 500 MG in D5W 5% 100 ML IV SCH (10:00)
[2021-08-14] MEDS ORDERED: FUROSEMIDE 20 MG/2 ML VIAL IV ONE (11:30)
[2021-08-14] MEDS ORDERED: POTASSIUM CHLORIDE 20 MEQ, LIDOCAINE 1% (LOCAL ANESTH.) 2 ML in SODIUM CHL 0.9% 100 ML IV ONE (13:15)
[2021-08-14] MEDS: FUROSEMIDE 20 MG/2 ML VIAL IV SCH ×2 (18:00→19:58)
[2021-08-14] MEDS: DIGOXIN (250MCG/ML) 2 ML AMPULE IV SCH (19:50)
[2021-08-14] MEDS: PANTOPRAZOLE 40 MG/10 ML VIAL INJ IV SCH ×2 (19:50→21:46)
[2021-08-14] MEDS: AMIODARONE HCL 200 MG TAB PO SCH ×2 (19:56→21:48)
[2021-08-14] MEDS: SOD CHL 0.45% 1,000 ML IV SCH (20:22)
[2021-08-14] MEDS: CARVEDILOL 3.125 MG TAB PO SCH (21:49)
[2021-08-15] VITALS (9 sets, daily range): BP systolic 118–147; BP diastolic 53–70
[2021-08-15] MEDS: SODIUM CHLOR 0.9% PF (SALINE LOCK) 10ML VIAL/SYR IV SCH ×3 (06:13→22:45)
[2021-08-15] MEDS: FUROSEMIDE 20 MG/2 ML VIAL IV SCH ×2 (06:13→18:00)
[2021-08-15 08:03] LABS: Basophils # (auto) 0.1 10 ^3/uL (0-0.2); Eosinophils # (auto) 0 10 ^3/uL (0-0.8); Hemoglobin 7.4 g/dL (13.5-17.5); Lymphocytes # (auto) 1.5 10 ^3/uL (0.4-5.4); White Blood Cell 17.5 10^3/uL (4.4-10.8)
[2021-08-15 08:08] LABS: Basophils % (auto) 0.7 % (0.0-2.0); Eosinophils % (auto) 0.1 % (0.0-7.0); Hematocrit 22.4 % (41.0-53.0); Lymphocytes % (auto) 8.8 % (10.0-50.0); Mean Corpuscular Hemoglobin 29.7 pg (28.0-32.0); Mean Corpuscular Volume 89.8 fL (80.0-100.0); Monocytes # (auto) 1.4 10 ^3/uL (0-1.3); Monocytes % (auto) 8.2 % (0.0-12.0); Neutrophils # (auto) 14.4 10 ^3/uL (1.6-8.6); Neutrophils % (auto) 82.2 % (37.0-80.0); Nucleated Red Blood Cells % 0.5 %; Red Blood Cells 2.49 10^6/uL (4.5-5.90); Red Cell Distribution Width 19.9 % (11.8-14.3)
[2021-08-15 08:30] LABS: Calcium 7.3 mg/dL (8.5-10.1); Potassium 3.9 mmol/L (3.5-5.1)
[2021-08-15] MEDS: PANTOPRAZOLE 40 MG/10 ML VIAL INJ IV SCH ×2 (10:43→22:45)
[2021-08-15] MEDS: DIGOXIN (250MCG/ML) 2 ML AMPULE IV SCH (10:43)
[2021-08-15] MEDS: AMIODARONE HCL 200 MG TAB PO SCH ×2 (10:44→22:45)
[2021-08-15] MEDS: CARVEDILOL 3.125 MG TAB PO SCH ×2 (10:44→22:46)
[2021-08-15] MEDS: SOD CHL 0.45% 1,000 ML IV SCH (11:45)
[2021-08-16] MEDS: SOD CHL 0.45% 1,000 ML IV SCH (01:58)
[2021-08-16 05:00] VITALS: BP 123/93
[2021-08-16] MEDS: FUROSEMIDE 20 MG/2 ML VIAL IV SCH (05:48)
[2021-08-16] MEDS: SODIUM CHLOR 0.9% PF (SALINE LOCK) 10ML VIAL/SYR IV SCH ×3 (05:49→21:42)
[2021-08-16 06:06] LABS: Basophils # (auto) 0.1 10 ^3/uL (0-0.2); Basophils % (auto) 0.4 % (0.0-2.0); Eosinophils # (auto) 0.2 10 ^3/uL (0-0.8); Eosinophils % (auto) 0.8 % (0.0-7.0); Hematocrit 27.9 % (41.0-53.0); Hemoglobin 8.9 g/dL (13.5-17.5); Lymphocytes # (auto) 1.6 10 ^3/uL (0.4-5.4); Lymphocytes % (auto) 7.3 % (10.0-50.0); Mean Corpuscular Hemoglobin 29.8 pg (28.0-32.0); Mean Corpuscular Hgb Conc. 31.9 g/dL (32.0-36.0); Mean Corpuscular Volume 93.5 fL (80.0-100.0); Monocytes # (auto) 1.5 10 ^3/uL (0-1.3); Neutrophils # (auto) 18.6 10 ^3/uL (1.6-8.6); Neutrophils % (auto) 84.5 % (37.0-80.0); Nucleated Red Blood Cells % 1.2 %; Red Blood Cells 2.98 10^6/uL (4.5-5.90); Red Cell Distribution Width 17.9 % (11.8-14.3)
[2021-08-16 06:25] LABS: Potassium 3.8 mmol/L (3.5-5.1)
[2021-08-16 06:30] LABS: BUN/Creatinine Ratio 41.8; Calcium 7.6 mg/dL (8.5-10.1)
[2021-08-16 09:00] VITALS: BP 105/50
[2021-08-16] MEDS: PANTOPRAZOLE 40 MG/10 ML VIAL INJ IV SCH ×2 (10:24→21:41)
[2021-08-16] MEDS: DIGOXIN (250MCG/ML) 2 ML AMPULE IV SCH (10:25)
[2021-08-16] MEDS: AMIODARONE HCL 200 MG TAB PO SCH ×2 (10:27→21:41)
[2021-08-16] MEDS: CARVEDILOL 3.125 MG TAB PO SCH ×2 (11:09→21:42)
[2021-08-16 13:00] VITALS: BP 127/76
[2021-08-16] MEDS ORDERED: D5W 5% 1,000 ML IV SCH (15:00)
[2021-08-16 17:00] VITALS: BP 135/76
[2021-08-16 17:53] VITALS: BP 100/63
[2021-08-16 22:00] VITALS: BP 132/81
== END 2021-08-16 23:45 | disposition short-term general hospital (02) | DRG 853 ==
LOC: ER 15:47 → TELE 20:21 → TELE-CENTR 08-01 22:26 → ICU WEST 08-04 21:24 → TELE-CENTR 08-14 02:20
PROVIDERS: ADMIT Hospitalist; ATTEND Family Medicine
PROC: 5A09357 Assistance with Respiratory Ventilation, Less than 24 Consecutive Hours, Continuous Positive Airway Pressure (ICD-10-PCS; 2021-07-31)
PROC: 05HC33Z Insertion of Infusion Device into Left Basilic Vein, Percutaneous Approach (ICD-10-PCS; 2021-08-02)
PROC: B54NZZA Ultrasonography of Left Upper Extremity Veins, Guidance (ICD-10-PCS; 2021-08-02)
PROC: 30233N1 Transfusion of Nonautologous Red Blood Cells into Peripheral Vein, Percutaneous Approach (ICD-10-PCS; 2021-08-04)
PROC: 30233K1 Transfusion of Nonautologous Frozen Plasma into Peripheral Vein, Percutaneous Approach (ICD-10-PCS; 2021-08-05)
PROC: 06HM33Z Insertion of Infusion Device into Right Femoral Vein, Percutaneous Approach (ICD-10-PCS; 2021-08-06)
PROC: 5A1955Z Respiratory Ventilation, Greater than 96 Consecutive Hours (ICD-10-PCS; 2021-08-06)
PROC: 0BH17EZ Insertion of Endotracheal Airway into Trachea, Via Natural or Artificial Opening (ICD-10-PCS; 2021-08-06)
PROC: 0DJ08ZZ Inspection of Upper Intestinal Tract, Via Natural or Artificial Opening Endoscopic (ICD-10-PCS; 2021-08-08)
PROC: 0DJD8ZZ Inspection of Lower Intestinal Tract, Via Natural or Artificial Opening Endoscopic (ICD-10-PCS; 2021-08-08)
PROC: 0JH606Z Insertion of Pacemaker, Dual Chamber into Chest Subcutaneous Tissue and Fascia, Open Approach (ICD-10-PCS; principal; 2021-08-11)
PROC: 02HK3JZ Insertion of Pacemaker Lead into Right Ventricle, Percutaneous Approach (ICD-10-PCS; 2021-08-11)
PROC: 02H63JZ Insertion of Pacemaker Lead into Right Atrium, Percutaneous Approach (ICD-10-PCS; 2021-08-11)
DX: A41.9 Sepsis, unspecified organism (principal); G93.41 Metabolic encephalopathy; R57.1 Hypovolemic shock; J96.01 Acute respiratory failure with hypoxia; N17.0 Acute kidney failure with tubular necrosis; I50.43 Acute on chronic combined systolic (congestive) and diastolic (congestive) heart failure; I26.99 Other pulmonary embolism without acute cor pulmonale; J18.9 Pneumonia, unspecified organism; I21.4 Non-ST elevation (NSTEMI) myocardial infarction; D62 Acute posthemorrhagic anemia; D68.69 Other thrombophilia; E87.0 Hyperosmolality and hypernatremia; E87.1 Hypo-osmolality and hyponatremia; G93.1 Anoxic brain damage, not elsewhere classified; I42.9 Cardiomyopathy, unspecified; I48.92 Unspecified atrial flutter; N18.4 Chronic kidney disease, stage 4 (severe); I13.0 Hypertensive heart and chronic kidney disease with heart failure and stage 1 through stage 4 chronic kidney disease, or unspecified chronic kidney disease; J91.8 Pleural effusion in other conditions classified elsewhere; I82.A11 Acute embolism and thrombosis of right axillary vein; K62.5 Hemorrhage of anus and rectum; Z66 Do not resuscitate; D69.6 Thrombocytopenia, unspecified; K26.9 Duodenal ulcer, unspecified as acute or chronic, without hemorrhage or perforation; E11.22 Type 2 diabetes mellitus with diabetic chronic kidney disease; E11.649 Type 2 diabetes mellitus with hypoglycemia without coma; K26.7 Chronic duodenal ulcer without hemorrhage or perforation; E78.5 Hyperlipidemia, unspecified; E87.5 Hyperkalemia; E88.09 Other disorders of plasma-protein metabolism, not elsewhere classified; F19.10 Other psychoactive substance abuse, uncomplicated; K57.30 Diverticulosis of large intestine without perforation or abscess without bleeding; F41.9 Anxiety disorder, unspecified; R65.20 Severe sepsis without septic shock; I44.7 Left bundle-branch block, unspecified; N14.1 Nephropathy induced by other drugs, medicaments and biological substances; T50.8X5A Adverse effect of diagnostic agents, initial encounter; I51.3 Intracardiac thrombosis, not elsewhere classified; F12.90 Cannabis use, unspecified, uncomplicated; I48.91 Unspecified atrial fibrillation; I49.5 Sick sinus syndrome; Z20.822 Contact with and (suspected) exposure to COVID-19; Z79.899 Other long term (current) drug therapy; Z82.49 Family history of ischemic heart disease and other diseases of the circulatory system; Z90.49 Acquired absence of other specified parts of digestive tract; Y92.89 Other specified places as the place of occurrence of the external cause
CPT/HCPCS: 36415; 36600; 70450; 71045; 76705; 76775; 78278; 78582; 80048; 80053; 80061; 80074; 80162; 80202; 80307; 81001; 82306; 82550; 82565; 82570; 82728; 82805; 82962; 83036; 83605; 83615; 83735; 83880; 83970; 84100; 84443; 84484; 85007; 85014; 85018; 85025; 85027; 85379; 85384; 85610; 85730; 86141; 86850; 86900; 86901; 86920; 87040; 87070; 87081; 87086; 87205; 87426; 93005; 93306; 93925; 93970; 94002; 94003; 94640; 94660; 95819; 96365; 96367; 99152; 99153; 99291; A9560; C1785; C9113; G0378; J0153; J0330; J0461; J1100; J1815; J2001; J2185; J2250; J2405; J2543; J2704; J3490; J7060; P9047; Q9956